=== PATIENT | female | born 1980 | race Caucasian/White ===

== ENCOUNTER 2018-12-30 08:46 | Emergency (ER) | payer MEDICAID ==
[~2018-12-30] VITALS: Ht 157.5 cm; Wt 110.0 kg
[~2018-12-30 08:46] MED LIST: ALBU18HF INHALATION; AZIT250T PO; BENZ-6 PO; D-ME473S2 PO; IBUP-1542 PO; PRED20TA PO
[2018-12-30 08:55] VITALS: Ht 157.5 cm; Wt 110.0 kg
[2018-12-30 11:07] VITALS: BP 118/74; PULSE 63; RESP 22
== END 2018-12-30 11:09 | disposition home or self-care (01) ==
LOC: FTE 08:46
DX: R05 Cough (principal)
CPT/HCPCS: 71046; 81025; Z7502

== ENCOUNTER 2018-12-31 01:14 | Emergency (ER) | payer MEDICAID ==
[~2018-12-31] VITALS: Ht 160 cm; Wt 110.6 kg
[2018-12-31 01:16] VITALS: Ht 160 cm; Wt 110.6 kg
[2018-12-31] MEDS ORDERED: ALBUTEROL 0.083% (NEB) 2.5 MG/3 ML AMP HHN STA (02:50)
[2018-12-31] MEDS ORDERED: predniSONE 20 MG TAB PO ONE (03:00)
[2018-12-31] MEDS ORDERED: IPRATROPIUM (NEB) 0.5 MG/2.5 ML AMP HHN ONE (03:00)
[2018-12-31 04:03] VITALS: BP 118/69; PULSE 88; RESP 18
== END 2018-12-31 04:13 | disposition home or self-care (01) ==
LOC: FTE 01:14
DX: J45.909 Unspecified asthma, uncomplicated (principal); Z76.0 Encounter for issue of repeat prescription
CPT/HCPCS: 94664; J7512; Z7610; 99283